=== PATIENT | female | born 1975 | race Caucasian/White ===

== ENCOUNTER → 2021-12-20 | Outpatient (CLI) | payer SELFPAY ==
[2014-01-29 10:55] VITALS: BP 135/75
--- NOTE | 2021-12-30 08:41 | EEG ---
DATE OF SERVICE: 12/20/2021 ELECTROENCEPHALOGRAM REPORT EEG NUMBER: 19. OBJECTIVE: The patient is a 46-year-old male with seizures. DESCRIPTION: This is a digital study. Electrodes are placed according to the international 10-20 system. Bipolar and referential montages are available. Activation procedures typically include hyperventilation and intermittent photic stimulation. INTERPRETATION: The waking background consists of 9-10 Hz, 50-100 microvolt activity, symmetrically distributed over parietooccipital regions and reactive to eye opening. Hyperventilation and intermittent photic stimulation are noncontributory. Stage 1 sleep is achieved with normal electroencephalogram patterns. IMPRESSION: This electroencephalogram with the patient awake and asleep is within normal limits. There is no focal, paroxysmal or epileptiform activity. Thank you for letting us help with the patient's care. JULI DR: Nanda TID: [id number]
== END ==
LOC: EDSEX → MERGE 09:10 → RT 09:10
PROVIDERS: ATTEND Psychiatry & Neurology Neurology with Special Qualifications in Child Neurology
DX: R55 Syncope and collapse (principal)
CPT/HCPCS: 95816